=== PATIENT | female | born 1980 | race Caucasian/White ===

== ENCOUNTER 2016-02-28 06:02 | Day surgery (SDC) | payer OTHER ==
[~2016-02-28] VITALS: Ht 172.7 cm; Wt 129.3 kg
[~2016-02-28 06:02] MED LIST: ADDERALL XR 2525 MG PO; ALEVE220 MG PO; ATARAX,VISTARIL50 MG PO; CLARITIN10 M3 PO; DEPO-PROVER150 MG/ML IM; FLEXERIL10 MG PO; FLEXERIL5 MG PO; HYCODAN SYRUP480 ML PO; MAALOX ADVANCE355 ML PO; MOTRIN800 MG PO; MUCINEX D ER T1 EAC1 PO; NASONEX17 GM BOTH NARES; NOHOMEMEDS; OMEPRAZOLE20 MG PO; OMEPRAZOLE40 M1 PO; PERCOCET 10/1 TABLET PO; PERCOCET 5/31 TABLET PO; PERCOCET 7.51 TABLET; PERCOCET 7.51 TABLET PO; PREDNISONE10 MG PO; PRENATAL TABLE1 EAC3 PO; ROBITUSSIN7.5 MG/5 M PO; SENNA8.6 M1 PO; VENTOLIN HFA18 GM IH; ZANTAC150 M1 PO; ZITHROMAX1 GM PO; ZOFRAN4 MG PO
[2016-02-28 07:01] VITALS: BP 105/57
[2016-02-28 12:35] VITALS: BP 124/72
[2016-02-28 13:45] VITALS: BP 124/60
== END 2016-02-28 13:45 | disposition home or self-care (01) ==
LOC: SDC 06:02
DX: M51.26 Other intervertebral disc displacement, lumbar region (principal); M51.16 Intervertebral disc disorders with radiculopathy, lumbar region; F17.200 Nicotine dependence, unspecified, uncomplicated; R01.1 Cardiac murmur, unspecified; K21.9 Gastro-esophageal reflux disease without esophagitis; E66.01 Morbid (severe) obesity due to excess calories
CPT/HCPCS: 72020; 76000; J0330; J1100; J1170; J2250; J2405; J2765; J3010; J3370; S0020

== ENCOUNTER 2016-05-01 20:58 | Emergency (ER) | payer OTHER ==
[~2016-05-01] VITALS: Ht 175.3 cm; Wt 132.9 kg
[2016-05-01 21:36] LABS: HEMATOCRIT 42.5 % (36.0-46.0); MCH 27.6 PG (29.0-34.0); MCHC 32.9 G/DL (30.0-36.0); MCV 83.7 FL (83-99); MEAN PLAT.VOLUME 10.4 uM^3 (9.5-12.4); PLATELET COUNT 469 K/uL (156-360); RBC DIS.WIDTH-CV 13.4 % (11.8-14.6); RBC DIS.WIDTH-SD 41.2 % (39-53); RED BLOOD COUNT 5.08 M/uL (3.80-5.20); WHITE BLOOD COUNT 13.8 K/uL (4.1-10.2)
[2016-05-01 21:49] LABS: CHLORIDE 108 mEq/L (99-109); POTASSIUM 3.8 mEq/L (3.7-5.4); SODIUM 138 mEq/L (136-147)
[2016-05-01 21:51] LABS: GLUCOSE 103 mg/dL (70-99)
[2016-05-01 21:53] LABS: ANION GAP 11 MEQ/L (2-14); TOTAL BILIRUBIN 0.2 mg/dL (0.0-1.0)
[2016-05-01 21:55] LABS: ALKALINE PHOSPHATASE 95 IU/L (3-129); GFR ESTIMATE (CALCULATED) > 59 mL/min/
[2016-05-01 21:56] LABS: UREA NITROGEN (BUN) 10 mg/dL (9-23)
[2016-05-01 22:04] LABS: QUANTITATIVE HCG < 4.0 MIU/ML
[2016-05-01 22:55] LABS: ADD MIUA? YES; BILIRUBIN NEGATIVE; BLOOD NEGATIVE; COLOR YELLOW ((YELLOW)); GLUCOSE (STRIP) NEGATIVE; KETONES NEGATIVE; LEUKOCYTES TRACE; NITRITE NEGATIVE; PROTEIN (STRIP) NEGATIVE; SPECIFIC GRAVITY 1.014 (1.000-1.030); UROBILINOGEN 0.2 MG/DL (0.2-1.0)
[2016-05-01 22:57] LABS: BACTERIA NONE SEEN /HPF; EPITHELIAL CELLS RARE /HPF; MUCUS NONE SEEN /LPF; RED BLOOD CELLS 0-5 /HPF (0-5); WHITE BLOOD CELLS 0-5 /HPF (0-5)
[2016-05-01] MEDS ORDERED: ANUSOL HC,ANUCO25 MG PR (23:52)
[2016-05-01] MEDS ORDERED: ZOFRAN ODT4 MG PO (23:54)
[2016-05-01] MEDS ORDERED: BENTYL20 MG PO (23:54)
[2016-05-02 00:19] VITALS: BP 137/78
[2016-05-05 10:29] LABS: POC NON-PRINT COM 1 ND
== END 2016-05-02 00:20 | disposition home or self-care (01) ==
LOC: RME 20:58 → EME 20:58 → RME 05-02 00:20
PROVIDERS: Physician Assistant
DX: K62.5 Hemorrhage of anus and rectum (principal); R10.9 Unspecified abdominal pain; R11.0 Nausea; G89.29 Other chronic pain; M54.9 Dorsalgia, unspecified; Z79.891 Long term (current) use of opiate analgesic; F17.200 Nicotine dependence, unspecified, uncomplicated
CPT/HCPCS: 74177; 80053; 81003; 82272; 83605; 84702; 85027; 99281; 99285; J2405; J7030

== ENCOUNTER 2017-07-23 07:47 | Day surgery (SDC) | payer OTHER ==
[~2017-07-23] VITALS: Ht 172.7 cm; Wt 127.0 kg
[~2017-07-23 07:47] MED LIST changes: +ADDERALL XR 3030 MG PO; +AMOXICILLIN500 MG PO; +ANUSOL HC,ANUCO25 MG PR; +BENTYL20 MG PO; +ENDOCET 10-3251 EACH PO; +ZOFRAN ODT4 MG PO
[2017-07-23 08:54] VITALS: BP 112/69
[2017-07-23] MEDS ORDERED: EXCEDRIN EXTRA1 EACH PO (08:59)
[2017-07-23] MEDS ORDERED: NORCO 5/3251 TABLET PO (11:38)
[2017-07-23 12:53] VITALS: BP 102/66
[2017-07-23 13:54] VITALS: BP 129/59
== END 2017-07-23 14:20 | disposition home or self-care (01) ==
LOC: SDC 07:47
PROC: 0WUF4JZ Supplement Abdominal Wall with Synthetic Substitute, Percutaneous Endoscopic Approach (ICD-10-PCS; principal; 2017-07-23)
DX: K43.0 Incisional hernia with obstruction, without gangrene (principal); F90.2 Attention-deficit hyperactivity disorder, combined type; K21.9 Gastro-esophageal reflux disease without esophagitis; H91.90 Unspecified hearing loss, unspecified ear; E66.01 Morbid (severe) obesity due to excess calories; Z68.41 Body mass index [BMI] 40.0-44.9, adult; F17.200 Nicotine dependence, unspecified, uncomplicated; M51.26 Other intervertebral disc displacement, lumbar region; Z79.891 Long term (current) use of opiate analgesic; Z90.49 Acquired absence of other specified parts of digestive tract; Z91.040 Latex allergy status; Z88.5 Allergy status to narcotic agent; Z88.1 Allergy status to other antibiotic agents; Z92.0 Personal history of contraception; Z80.1 Family history of malignant neoplasm of trachea, bronchus and lung; Z80.41 Family history of malignant neoplasm of ovary; Z80.0 Family history of malignant neoplasm of digestive organs; Z81.8 Family history of other mental and behavioral disorders
CPT/HCPCS: C1781; J0131; J0690; J1100; J1170; J1885; J2250; J2405; J2710; J3010; J7643; Q0175

== ENCOUNTER 2017-07-26 08:22 | Emergency (ER) | payer OTHER ==
[~2017-07-26] VITALS: Ht 172.7 cm; Wt 127.2 kg
[~2017-07-26 08:22] MED LIST changes: +EXCEDRIN EXTRA1 EACH PO; +NORCO 5/3251 TABLET PO
[2017-07-26 09:39] LABS: BASOPHIL (%) 0.8 % (0-1); BASOPHIL COUNT 0.1 K/uL (0-0.1); EOSINOPHIL (%) 3.3 % (0-5); EOSINOPHIL COUNT 0.3 K/uL (0-0.3); HEMATOCRIT 37.6 % (36.0-46.0); HEMOGLOBIN 12.7 G/DL (11.9-15.5); IMMATURE GRANULOCYTE (%) 0.5 % (0.0-0.7); LYMPHOCYTE (%) 20.5 % (15-42); LYMPHOCYTE COUNT 2.1 K/uL (1.0-2.8); MCH 28.3 PG (29.0-34.0); MCHC 33.8 G/DL (30.0-36.0); MCV 83.9 FL (83-99); MONOCYTE (%) 8.4 % (3-12); MONOCYTE COUNT 0.9 K/uL (0-0.8); NEUTROPHIL (%) 66.5 % (45-76); NEUTROPHIL COUNT 6.9 K/uL (1.8-6.4); PLATELET COUNT 383 K/uL (156-360); RBC DIS.WIDTH-CV 13.4 % (11.8-14.6); RBC DIS.WIDTH-SD 41.1 % (39-53); RED BLOOD COUNT 4.48 M/uL (3.80-5.20); WHITE BLOOD COUNT 10.4 K/uL (4.1-10.2)
[2017-07-26 09:47] LABS: CHLORIDE 109 mEq/L (99-109); SODIUM 141 mEq/L (136-147)
[2017-07-26 09:48] LABS: GLUCOSE 87 mg/dL (70-99)
[2017-07-26 09:52] LABS: CREATININE 0.7 mg/dL (0.6-1.3); GFR ESTIMATE (CALCULATED) > 59 mL/min/
[2017-07-26 09:53] LABS: UREA NITROGEN (BUN) 4 mg/dL (9-23)
[2017-07-26] MEDS ORDERED: ZOFRAN4 MG PO (11:15)
[2017-07-26 11:48] VITALS: BP 133/83
== END 2017-07-26 11:48 | disposition home or self-care (01) ==
LOC: EME 08:22
PROVIDERS: Emergency Medicine
DX: R11.0 Nausea (principal); R10.9 Unspecified abdominal pain; Z98.890 Other specified postprocedural states; R35.0 Frequency of micturition; Z86.14 Personal history of Methicillin resistant Staphylococcus aureus infection; Z90.49 Acquired absence of other specified parts of digestive tract; F17.200 Nicotine dependence, unspecified, uncomplicated
CPT/HCPCS: 80048; 85025; 99281; 99285; J2405; J3010; J7030

== ENCOUNTER 2017-07-27 23:22 | Emergency (ER) | payer OTHER ==
[~2017-07-27] VITALS: Ht 172.7 cm; Wt 133.2 kg
[2017-07-28 02:18] LABS: BASOPHIL (%) 0.8 % (0-1); BASOPHIL COUNT 0.1 K/uL (0-0.1); EOSINOPHIL (%) 6.2 % (0-5); EOSINOPHIL COUNT 0.7 K/uL (0-0.3); HEMATOCRIT 39.3 % (36.0-46.0); HEMOGLOBIN 13.1 G/DL (11.9-15.5); IMMATURE GRANULOCYTE (%) 0.8 % (0.0-0.7); LYMPHOCYTE (%) 30.3 % (15-42); LYMPHOCYTE COUNT 3.6 K/uL (1.0-2.8); MCH 27.7 PG (29.0-34.0); MCHC 33.3 G/DL (30.0-36.0); MCV 83.1 FL (83-99); MONOCYTE (%) 7.5 % (3-12); MONOCYTE COUNT 0.9 K/uL (0-0.8); NEUTROPHIL (%) 54.4 % (45-76); NEUTROPHIL COUNT 6.5 K/uL (1.8-6.4); PLATELET COUNT 404 K/uL (156-360); RBC DIS.WIDTH-CV 13.2 % (11.8-14.6); RBC DIS.WIDTH-SD 39.8 % (39-53); RED BLOOD COUNT 4.73 M/uL (3.80-5.20); WHITE BLOOD COUNT 11.9 K/uL (4.1-10.2)
[2017-07-28 02:29] LABS: CHLORIDE 104 mEq/L (99-109); POTASSIUM 3.6 mEq/L (3.7-5.4); SODIUM 139 mEq/L (136-147)
[2017-07-28 02:31] LABS: GLUCOSE 92 mg/dL (70-99)
[2017-07-28 02:35] LABS: CREATININE 0.8 mg/dL (0.6-1.3); GFR ESTIMATE (CALCULATED) > 59 mL/min/
[2017-07-28 02:36] LABS: UREA NITROGEN (BUN) 6 mg/dL (9-23)
[2017-07-28] MEDS ORDERED: CLEOCIN300 MG PO (04:06)
[2017-07-28 05:24] VITALS: BP 119/67
== END 2017-07-28 05:25 | disposition left against medical advice (07) ==
LOC: EME 23:22
PROVIDERS: Emergency Medicine
DX: L03.311 Cellulitis of abdominal wall (principal); L02.211 Cutaneous abscess of abdominal wall; Z98.890 Other specified postprocedural states; Z86.14 Personal history of Methicillin resistant Staphylococcus aureus infection; Z91.040 Latex allergy status; Z88.1 Allergy status to other antibiotic agents; F17.200 Nicotine dependence, unspecified, uncomplicated
CPT/HCPCS: 74177; 80048; 85025; 99281; 99285; J1200; J2543; J7030